=== PATIENT | female | born 2000 ===

== ENCOUNTER 2023-09-01 18:21 | Emergency (ER) | payer OTHER, SELFPAY ==
[2023-09-01 18:27] VITALS: BP 110/68; PULSE 71; O2SAT 100
[2023-09-01 18:34] VITALS: BP 91/47; PULSE 84; RESP 19; TEMP 36.6; O2SAT 98; BMI 20.2
--- NOTE | 2023-09-01 18:52 | ED.SYNCOPE ---
HPI - Syncope General Chief Complaint: Syncope Stated Complaint: near syncopal episode after using marijuana vape Time Seen by Provider: 09/01/23 18:39 Source: patient and EMS Mode of arrival: EMS Limitations: no limitations History of Present Illness HPI narrative: 23-year-old female with history of syncopal episodes in the past presents to the ER with complaints of syncopal episode which occurred prior to arrival. Patient reports that she smokes some marijuana and then went into a restaurant to eat when she started to feel very lightheaded and dizzy and nauseous. She believes she may have had a brief loss of consciousness. EMS was called. She was alert on arrival. She now feels tired but no other specific complaints. Patient reports that she has not eaten and has had little to drink today. Related Data Allergies Allergy/AdvReac Type Severity Reaction Status Date / Time No Known Allergies Allergy Verified 09/01/23 18:41 Review of Systems Review of Systems: Yes all other systems are reviewed and are negative Constitutional: Constitutional: Reports no additional constitutional complaints, Denies body ache(s), Denies chills, Denies fever(s), Denies headache(s) and Reports weakness Eyes: Eyes: Reports no additional eye complaints and Denies change in vision ENT: Reports system reviewed and no additional complaints, except as documented, Reports dizziness, Denies headache(s), Denies nasal congestion, Denies nasal discharge and Denies neck pain Cardiovascular: Cardiovascular: Reports no additional cardiovascular complaints, Denies chest pain, Denies leg edema and Denies dyspnea Respiratory: Respiratory: Reports no additional respiratory complaints, Denies cough and Denies dyspnea Gastrointestinal: Gastrointestinal: Reports no additional gastrointestinal complaints, Denies abdominal pain, Denies diarrhea, Reports nausea and Denies vomiting Genitourinary: Genitourinary: Reports no additional female genitourinary complaints and Denies urinary incontinence Musculoskeletal: Musculoskeletal: Reports no additional musculoskeletal complaints, Denies back pain, Denies arthralgias, Denies joint swelling, Denies neck pain, Denies numbness and Denies tingling Integumentary/Breasts: Skin/Breast: Reports system reviewed and no additional complaints, except as docu and Denies rash Neurologic: Reports system reviewed and no additional complaints, except as documented, Denies Abnormal speech present, Reports dizziness, Denies headache(s), Denies numbness, Denies tingling and Reports weakness PMFSH Past Medical History Attestation statement: The following information was validated with the patient. Source: old records reviewed and nursing notes reviewed Social History Social History Advance Directives: No Advance Directives Information Provided: No Physical Exam Vital Signs: Vital Signs: Last Vital Signs Temp 98 F 09/01/23 18:34 Pulse 84 09/01/23 18:34 Resp 19 09/01/23 18:34 BP 91/47 L 09/01/23 18:34 Pulse Ox 98 09/01/23 18:34 O2 Del Method Room Air 09/01/23 18:34 BMI result Body Mass Index 20.2 Const: General: cooperative, healthy appearing, comfortable and no acute distress Orientation/consciousness: patient oriented x3 Limitations: no limitations HEENT: Head: Yes normal to inspection Ears: hearing grossly normal bilaterally and TM's normal bilaterally General nose exam: Normal external nose present Face and sinus: Yes normal facial exam Mouth: Normal oral and palatal mucosa present Throat: Yes posterior oropharynx normal Eyes: General: appearance normal, both eyes and all related structures Pupils: Equal, round and reactive pupils present Neck: Neck: Yes normal visual inspection, Yes full ROM and Yes no lymphadenopathy Chest: Chest palpation & inspection: normal inspection of the chest Resp: Effort & Inspection: normal respiratory effort Auscultation: clear to auscultation bilaterally Cardio: Rate: regular rate Rhythm: regular rhythm Peripheral pulses: Peripheral pulses 2+ throughout GI: Inspection: Yes normal to inspection Palpation (GI): Soft to palpation and nontender Auscultation: normal bowel sounds Back/Spine/Pelvis: Thoracic/Lumbar Spine: thoracic and lumbar spine normal to inspection Skin: General skin exam: no rashes or lesions noted Neuro: General: patient oriented x3, moves all extremities, no focal motor deficits and normal sensation to monofilament Cranial nerves: Yes CN's II-XII intact bilaterally, Yes Equal, round and reactive pupils present, Yes Bilaterally intact EOM present, Yes Nystagmus not present, Yes Normal facial strength present and Yes Midline tongue present Cognition (Neuro): normal cognition Speech: No Abnormal speech present Gait exam (Neuro): Normal gait present Motor exam (neuro): 5/5 motor strength present throughout Sensory Exam: Normal double simultaneous stimulation for sensation Extrem: General: Yes normal to inspection, Yes no pedal edema and Yes no calf tenderness Course Course Course Narrative: 1901-patient declined labs and EKG. Wishes to leave as she is feeling better and is now eating and drinking. Patient will leave against medical advice. Medical Decision Making Medical Decision Making [facility] Narrative: 23-year-old female with history of syncopal episodes in the past presents to the ER with complaints of syncopal episode which occurred prior to arrival. Patient reports that she smokes some marijuana and then went into a restaurant to eat when she started to feel very lightheaded and dizzy and nauseous. She believes she may have had a brief loss of consciousness. EMS was called. She was alert on arrival. She now feels tired but no other specific complaints. Patient reports that she has not eaten and has had little to drink today. Normal neuro exam with no focal deficits. Patient is mildly hypotensive on arrival but she is alert and oriented. Will check labs, EKG, orthostatics, urine Will give IV fluids and encourage patient to eat food Differential Diagnosis Differential Diagnoses: The differential diagnosis associated with the presentation includes Hypoglycemia, anemia, orthostatic hypotension, vasovagal syncope, low suspicion for PE, ACS Admission/Observation Consideration of admission/observation: Escalation of care including admission/observation considered Lab Data [facility] Lab Attestation statement: I reviewed the patient's lab results. Independent Interpretation I performed an independent interpretation of an: EKG Independent Historian Clinical information obtained from an independent historian. History obtained from or confirmed by: EMS Discharge Plan Discharge Clinical Impression: Syncope Patient Disposition: Left Against Medical Advice Instructions: Syncope (ED), Against Medical Advice (ED) Additional Instructions: We recommended that you have labs and an EKG done to rule out any other underlying cause of you passing out. At this time you declined this. You are welcome to return at any time. We do recommend that you follow-up with your primary care doctor outpatient as you may need additional testing done. Referrals: Physician,None [Primary Care Provider] - 1 week Stand Alone Forms: Against Medical Advice
--- NOTE | 2023-09-01 18:59 | MHC.EDTECH ---
Patient stated didnt want EKG done was feeling better and wanted to leave. I told provider who is now talking to patient
--- NOTE | 2023-09-01 19:01 | PC.NURSE ---
pt requesting to leave AMA, provider notified.
[2023-09-01 19:03] VITALS: BP 96/67; PULSE 86; RESP 18; TEMP 36.3; O2SAT 99
--- NOTE | 2023-09-01 19:08 | PC.NURSE ---
AMRoberto paperwork signed by pt. verbalized understanding.
== END 2023-09-01 19:08 | disposition left against medical advice (07) ==
PROVIDERS: Emergency Provider Emergency Medicine
DX: R55 Syncope and collapse (principal); F12.90 Cannabis use, unspecified, uncomplicated; R42 Dizziness and giddiness
CPT/HCPCS: 99282

== ENCOUNTER 2024-02-22 11:19 | Emergency (ER) | payer OTHER, SELFPAY ==
--- NOTE | ~2024-02-22 | CT_ITS ---
EXAMINATION: CT HEAD WITHOUT IV CONTRAST CLINICAL INFORMATION: trauma r/o subdural COMPARISON: None. TECHNIQUE: Contiguous axial imaging was performed from the skull base to vertex without intravenous contrast. Sagittal and coronal reformatted images were obtained. This CT examination was performed using dose optimization techniques as appropriate, variously including the following: * Automated exposure control * Adjustment of mA and/or kV according to patient size (this includes techniques or standardized protocols for targeted exams where dose is matched to indication/reason for exam; i.e. extremities or head) Use of iterative reconstruction technique DLP: 515 mGy-cm FINDINGS: No acute osseous or soft tissue abnormality. The mastoid air cells and visualized portions of the paranasal sinuses are well aerated. There is no evidence of acute intracranial hemorrhage or territorial infarction. No abnormal mass effect or midline shift is seen. Robertson to white matter differentiation is well preserved. No extra-axial fluid collections are identified. No hydrocephalus. No significant volume loss. There is no abnormal attenuation within the brain parenchyma. CT/CT head/brain wo IV con IMPRESSION: No acute intracranial abnormality including hemorrhage, mass effect, hydrocephalus, or acute territorial edematous infarction. Electronically signed by: Brien Romo MD 02/22/2024 12:34 PM EDT
--- NOTE | 2024-02-22 11:26 | ED.HEATRA ---
HPI - Head Injury General Chief complaint: Head Injury Stated complaint: head inj Time Seen by Provider: 02/22/24 11:36 History of Present Illness HPI Narrative: See additional note from Dr. Bolanos Related Data Allergies Allergy/AdvReac Type Severity Reaction Status Date / Time No Known Allergies Allergy Verified 02/22/24 11:30 [facility] Social History Social History Advance Directives: No Advance Directives Information Provided: Yes Do you have a plan to hurt others: No Plan Physical Exam Vital Signs: Vital Signs: Last Vital Signs Temp 98.6 F 02/22/24 13:15 Pulse 99 02/22/24 13:15 Resp 18 02/22/24 13:15 BP 118/50 L 02/22/24 13:15 Pulse Ox 100 02/22/24 13:15 O2 Del Method Room Air 02/22/24 13:15 BMI result Body Mass Index 20.1 Course Course Course Narrative: This is an RME performed by John Mi CNP: Additional HPI, ROS, PE not included below will be deferred to primary provider. Patient is a 23-year-old female 2 days ago hit her head on the door frame, having intractable diffuse headache, dizziness, nausea. took ibuprofen and tylenol but states this made the headache worse so she has not taken anything else. Denies use of anticoagulants no known coagulation disorders. No focal neurological deficits Medications Administered Discontinued Medications Generic Name Dose Route Start Last Admin Trade Name Angel Luis PRN Reason Stop Dose Admin Ibuprofen 800 mg 02/22/24 13:01 02/22/24 13:13 Ibuprofen 800 Mg Tablet PO 02/22/24 13:02 800 mg ONCE ONE Administration Ondansetron HCl 4 mg 02/22/24 11:38 02/22/24 11:58 Ondansetron Odt 4 Mg Tab.Rapdis TRANSLINGU 02/22/24 11:39 4 mg ONCE ONE Administration Discharge Plan Discharge Clinical Impression: Closed head injury Qualifiers: Encounter type: initial encounter Qualified Code(s): S09.90XA - Unspecified injury of head, initial encounter Patient Disposition: Home, Self-Care Instructions: Head Injury (ED) Additional Instructions: Follow-up with your primary care physician return to the emergency room if you are worse Referrals: Physician,Unknown J [Primary Care Provider] - 02/25/24 Interventions: ED Discharge Assessment Last Done: 02/22/24 13:15 Discharge Date/Time: 02/22/24 13:15 Print Language: Malian
[2024-02-22 11:27] VITALS: BP 102/61; PULSE 98; RESP 16; TEMP 36.7; O2SAT 99; BMI 20.1
--- NOTE | 2024-02-22 11:39 | ED.HEATRA ---
HPI - Head Injury General Chief complaint: Head Injury Stated complaint: head inj Time Seen by Provider: 02/22/24 11:36 Source: patient Mode of arrival: ambulatory Limitations: no limitations History of Present Illness HPI Narrative: This is 22 years old the patient presented to the emergency department complaining of dizziness sudden headache she states that on (2 days ago) hit the head against the car door and since then she has been having dizziness and headache. Denies any nausea vomiting MD Complaint: head injury and head pain Onset (ago): day(s) (2) Mechanism of Injury: other (head vs car door) Loss of Consciousness: no Location of injury: frontal Severity: moderate Radiation: none Other Injuries: none Related Data Allergies Allergy/AdvReac Type Severity Reaction Status Date / Time No Known Allergies Allergy Verified 02/22/24 11:30 Review of Systems Constitutional: Constitutional: Reports no additional constitutional complaints Cardiovascular: Cardiovascular: Reports no additional cardiovascular complaints [facility] Past Medical History Attestation statement: The following information was validated with the patient. [facility] Narrative: denies any medical condition Social History Social History Advance Directives: No Advance Directives Information Provided: Yes Do you have a plan to hurt others: No Plan Physical Exam Vital Signs: Vital Signs: Last Vital Signs Temp 98.0 F 02/22/24 11:27 Pulse 98 02/22/24 11:27 Resp 16 02/22/24 11:27 BP 102/61 02/22/24 11:27 Pulse Ox 99 02/22/24 11:27 O2 Del Method Room Air 02/22/24 11:27 BMI result Body Mass Index 20.1 Const: General: cooperative Nutritional Appearance: well nourished Orientation/consciousness: patient oriented x3 Limitations: no limitations HEENT: Head: Yes normal to inspection General nose exam: Normal external nose present Face and sinus: Yes normal facial exam Mouth: Normal oral and palatal mucosa present Neck: Neck: Yes normal visual inspection Chest: Chest palpation & inspection: normal inspection of the chest Resp: Effort & Inspection: normal respiratory effort Auscultation: clear to auscultation bilaterally Cardio: Jugular venous distension: no JVD Rate: regular rate Rhythm: regular rhythm GI: Inspection: Yes normal to inspection Palpation (GI): Soft to palpation, not firm, nontender and no guarding Auscultation: normal bowel sounds Skin: General skin exam: no rashes or lesions noted and elasticity normal Rashes: no rashes Neuro: General: patient oriented x3 Course Reevaluation(s) Reevaluation #1: CT scan of the head negative I think she can be discharged home. Time: 13:02 Medications Administered Discontinued Medications Generic Name Dose Route Start Last Admin Trade Name Freq PRN Reason Stop Dose Admin Ondansetron HCl 4 mg 02/22/24 11:38 02/22/24 11:58 Ondansetron Odt 4 Mg Tab.Rapdis TRANSLINGU 02/22/24 11:39 4 mg ONCE ONE Administration Medical Decision Making Medical Decision Making [facility] Narrative: She presented complaining of dizziness headache status post head injury Differential Diagnosis Differential Diagnoses: The differential diagnosis associated with the presentation includes Subdural Hematoma /epidural hematoma /concussion Admission/Observation Consideration of admission/observation: Escalation of care including admission/observation considered Independent Interpretation I performed an independent interpretation of an: CT Scan Radiology Impression Discussion of test interpretation with radiology: I have reviewed the radiologist's reading. Independent Historian significative other Discharge Plan Discharge Clinical Impression: Closed head injury Qualifiers: Encounter type: initial encounter Qualified Code(s): S09.90XA - Unspecified injury of head, initial encounter Patient Disposition: Home, Self-Care Instructions: Head Injury (ED) Additional Instructions: Follow-up with your primary care physician return to the emergency room if you are worse Referrals: Physician,Ronel J [Primary Care Provider] - 02/25/24 Print Language: Mohawk
[2024-02-22] MEDS: Ondansetron ODT 4 MG TAB.RAPDIS TRANSLINGU (11:58)
[2024-02-22 13:13] VITALS: BP 118/50; PULSE 99; RESP 18; TEMP 37; O2SAT 100
[2024-02-22] MEDS: Ibuprofen 800 MG TABLET PO (13:13)
[2024-02-22 13:15] VITALS: BP 118/50; PULSE 99; RESP 18; TEMP 37; O2SAT 100
== END 2024-02-22 13:15 | disposition home or self-care (01) ==
PROVIDERS: Emergency Provider Emergency Medicine
DX: S09.90XA Unspecified injury of head, initial encounter (principal); W22.8XXA Striking against or struck by other objects, initial encounter; R42 Dizziness and giddiness; Y93.89 Activity, other specified; Y92.810 Car as the place of occurrence of the external cause; Y99.9 Unspecified external cause status
CPT/HCPCS: 70450; 99283; 99284

== ENCOUNTER → 2024-10-02 13:03 | Outpatient (BNVA) | payer OTHER, SELFPAY | PROVIDERS: Visit Provider Physician Assistant | DX: S80.01XA Contusion of right knee, initial encounter (principal); X50.1XXA Overexertion from prolonged static or awkward postures, initial encounter; S40.812A Abrasion of left upper arm, initial encounter; S40.811A Abrasion of right upper arm, initial encounter; W50.3XXA Accidental bite by another person, initial encounter | CPT/HCPCS: 73564; 99204 ==

== ENCOUNTER → 2024-10-06 11:34 | Outpatient (BNVA) | payer OTHER, SELFPAY | PROVIDERS: Visit Provider Physician Assistant Medical | DX: S40.812A Abrasion of left upper arm, initial encounter (principal); W50.3XXA Accidental bite by another person, initial encounter; S80.01XA Contusion of right knee, initial encounter; X50.1XXA Overexertion from prolonged static or awkward postures, initial encounter | CPT/HCPCS: 99213 ==

== ENCOUNTER → 2024-10-13 11:40 | Outpatient (BNVA) | payer OTHER, SELFPAY | PROVIDERS: Visit Provider Physician Assistant Medical | DX: S80.01XA Contusion of right knee, initial encounter (principal); X50.1XXA Overexertion from prolonged static or awkward postures, initial encounter; S40.812A Abrasion of left upper arm, initial encounter; S40.871A Other superficial bite of right upper arm, initial encounter; X50.3XXA Overexertion from repetitive movements, initial encounter; Z02.79 Encounter for issue of other medical certificate | CPT/HCPCS: 99213 ==

== ENCOUNTER → 2025-01-14 14:34 | Outpatient (BNVA) | payer OTHER, SELFPAY | PROVIDERS: Visit Provider Physician Assistant Medical | DX: S39.012A Strain of muscle, fascia and tendon of lower back, initial encounter (principal); X50.1XXA Overexertion from prolonged static or awkward postures, initial encounter; X50.0XXA Overexertion from strenuous movement or load, initial encounter; Z02.79 Encounter for issue of other medical certificate | CPT/HCPCS: 99203 ==